=== PATIENT | male | born 1940 | race African-American/Black ===

== ENCOUNTER 2019-02-13 16:13 | Observation (INO) ==
[2019-02-13 17:04] LABS: Basophils % 0.1 % (0.0-0.8); Eosinophils # 0.1 10*3/uL (0.0-0.87); Eosinophils % 0.7 % (0.00-10.9); Hematocrit 43.5 VOL% (42.0-52.0); Hemoglobin 13.8 GM/DL (14.0-18.0); Immature Granulocytes % 0.6 %; Immature Granulocytes Absolute 0.05 #; Lymphocytes # 0.7 10*3/uL (1.4-4.0); Lymphocytes % 8.4 % (21.2-54.2); Mean Corpuscular HGB Conc 31.7 GM/DL (32-36); Mean Corpuscular Volume 96.7 FL (87-102); Mean Platelet Volume 9.9 FL (9.6-12.0); Monocytes % 7.8 % (1.7-12.7); Neutrophils % 82.4 % (38.7-73.9); Platelet Count 129 T/CUMM (130-400); White Blood Count 8.8 T/CUMM (4-12)
[2019-02-13 17:25] LABS: Blood Urea Nitrogen 18 MG/DL (7-18); Calcium 9.1 MG/DL (8.5-10.1); Glucose 83 MG/DL (74-106); Osmolality,Calculated 279.4 MOS/KG (273-304)
[2019-02-13 17:51] LABS: Apearance,Urine CLEAR (Clear); Bilirubin,Urine Negative (Negative); Blood, Urine Negative (Negative); Glucose,Urine (UA) Negative (Negative); Hyaline Casts,Urine 7 /LPF (0-3); Ketones,Urine 20 mg/dL (Negative); Mucus,Urine Occasional /LPF (Occasional); Nitrite,Urine Negative (Negative); Protein,Urine 30 MG/DL; RBC,Urine 2 /HPF (0-4); Squamous Epithelial Cell,Urine Occasional /HPF (0-10); Urine Color Yellow (Yellow); Urine Specific Gravity 1.013 (1.001-1.035); WBC,Urine 2 /HPF (0-6)
[2019-02-13 17:55] LABS: Barbiturates Screen,Urine Negative (Negative); Benzodiazepines Screen,Urine Negative (Negative); Cannabinoid Screen,Urine Negative (Negative); Opiate Screen,Urine Negative (Negative); Phencyclidine Screen,Urine Negative (Negative)
[2019-02-13] MEDS ORDERED: SODIUM CHLORIDE 0.9% 1,000 ML IV STA (19:41)
[2019-02-13] MEDS ORDERED: BISACODYL 5 MG TABLET PO PRN (19:44)
[2019-02-13] MEDS ORDERED: THIAMINE INJ 100 MG, FOLIC ACID INJ 1 MG, MULTIVITAMIN INJ 10 ML in SODIUM CHLORIDE 0.9... IV ONE (19:44)
[2019-02-13] MEDS ORDERED: diphenhydrAMINE CAP 25 MG CAPSULE PO PRN (19:44)
[2019-02-13] MEDS ORDERED: ONDANSETRON 4 MG/2 ML VIAL IV PRN (19:44)
[2019-02-13] MEDS ORDERED: ACETAMINOPHEN 325 MG TABLET PO PRN (19:44)
[2019-02-13 20:15] LABS: Risk Ratio 4.67; Thyroid Stimulating Hormone 1.29 uIU/ml (0.358-3.74); VLDL CHOLESTEROL 13.6 MG/DL
[2019-02-14] MEDS: ASPIRIN 325 MG TABLET PO SCH ×2 (02:42→10:03)
[2019-02-14] MEDS: ENOXAPARIN 100 MG/ML SYRINGE SUBCUT SCH ×4 (02:42→23:55)
[2019-02-14 05:47] LABS: Basophils % 0.3 % (0.0-0.8); Eosinophils # 0.1 10*3/uL (0.0-0.87); Eosinophils % 1.8 % (0.00-10.9); Hematocrit 41.8 VOL% (42.0-52.0); Hemoglobin 13.3 GM/DL (14.0-18.0); Immature Granulocytes % 0.4 %; Immature Granulocytes Absolute 0.03 #; Lymphocytes # 1.2 10*3/uL (1.4-4.0); Mean Corpuscular HGB Conc 31.8 GM/DL (32-36); Mean Corpuscular Volume 97.7 FL (87-102); Mean Platelet Volume 10.1 FL (9.6-12.0); Monocytes % 9.5 % (1.7-12.7); Platelet Count 122 T/CUMM (130-400); Red Blood Count 4.28 MC/CUMM (3.8-5.5); Red Cell Distribution Width 14.2 % (9.3-17.3); White Blood Count 6.7 T/CUMM (4-12)
[2019-02-14 06:33] LABS: Albumin 3.3 G/DL (3.4-5.0); Bilirubin,Total 0.6 MG/DL (0.2-1.0); Calcium 9.2 MG/DL (8.5-10.1); Osmolality,Calculated 281.3 MOS/KG (273-304); Total Protein 6.6 G/DL (6.4-8.3)
[2019-02-14 08:04] LABS: CKMB % 3.6 %
[2019-02-14 08:06] LABS: Troponin I 0.923 NG/ML (0.00-0.045)
[2019-02-14] MEDS ORDERED: MAGNESIUM SULF RIDER 2 GM in PREMIX 1 EACH IV PRN (09:34)
[2019-02-14] MEDS ORDERED: POTASSIUM CHLORIDE RIDER 10 MEQ in PREMIX 1 EACH IV PRN (09:34)
[2019-02-14] MEDS: METOPROLOL TARTRATE 25 MG TABLET PO SCH ×2 (10:03→21:06)
[2019-02-14] MEDS: PANTOPRAZOLE 40 MG TABLET PO SCH (10:03)
[2019-02-14] MEDS: ATORVASTATIN 80 MG TABLET PO SCH (21:06)
[2019-02-15] MEDS: ENOXAPARIN 100 MG/ML SYRINGE SUBCUT SCH ×3 (00:16→12:04)
[2019-02-15 04:31] LABS: Basophils % 0.2 % (0.0-0.8); Eosinophils # 0.3 10*3/uL (0.0-0.87); Eosinophils % 4.6 % (0.00-10.9); Hematocrit 41.4 VOL% (42.0-52.0); Hemoglobin 13.1 GM/DL (14.0-18.0); Immature Granulocytes % 0.4 %; Immature Granulocytes Absolute 0.02 #; Lymphocytes # 1.3 10*3/uL (1.4-4.0); Lymphocytes % 24.3 % (21.2-54.2); Mean Corpuscular HGB Conc 31.6 GM/DL (32-36); Mean Corpuscular Volume 96.7 FL (87-102); Mean Platelet Volume 10.6 FL (9.6-12.0); Monocytes % 9.9 % (1.7-12.7); Neutrophils % 60.6 % (38.7-73.9); Platelet Count 126 T/CUMM (130-400); Red Blood Count 4.28 MC/CUMM (3.8-5.5); Red Cell Distribution Width 14.2 % (9.3-17.3); White Blood Count 5.4 T/CUMM (4-12)
[2019-02-15 05:01] LABS: Calcium 9.4 MG/DL (8.5-10.1); Osmolality,Calculated 274.7 MOS/KG (273-304)
[2019-02-15] MEDS: PANTOPRAZOLE 40 MG TABLET PO SCH (10:09)
[2019-02-15] MEDS: ASPIRIN 325 MG TABLET PO SCH (10:09)
[2019-02-15] MEDS: METOPROLOL TARTRATE 25 MG TABLET PO SCH (10:09)
[2019-02-15] MEDS: SODIUM CHLORIDE 0.45% 1,000 ML IV SCH ×2 (10:10→15:02)
[2019-02-15] MEDS ORDERED: diphenhydrAMINE CAP 25 MG CAPSULE PO ONE (12:00)
[2019-02-15] MEDS ORDERED: DIAZEPAM 5 MG TABLET PO ONE (12:00)
[2019-02-15] MEDS ORDERED: MIDAZOLAM 2 MG/2 ML VIAL ONE (15:09)
[2019-02-15] MEDS ORDERED: HYDROmorphone 2 MG/1 ML VIAL ONE (15:09)
[2019-02-15] MEDS ORDERED: LIDOCAINE 1% 20 ML VIAL ONE (15:09)
[2019-02-15] MEDS ORDERED: TIROFIBAN 5,000 MCG/100 ML PREMIX IV ONE (15:54)
[2019-02-15] MEDS ORDERED: TIROFIBAN 5,000 MCG/100 ML PREMIX IV SCH (15:56)
[2019-02-15] MEDS ORDERED: HYDROmorphone 2 MG/1 ML VIAL IV PRN (16:28)
[2019-02-15] MEDS ORDERED: ZALEPLON 5 MG CAPSULE PO PRN (16:28)
[2019-02-15] MEDS ORDERED: NITROGLYCERIN SL 0.4 MG TABLET SL PRN (16:28)
[2019-02-15 19:31] LABS: Troponin I 0.275 NG/ML (0.00-0.045)
[2019-02-15] MEDS: TICAGRELOR 90 MG TABLET PO SCH (21:11)
[2019-02-15] MEDS: ATORVASTATIN 80 MG TABLET PO SCH (21:11)
[2019-02-16] MEDS: SODIUM CHLORIDE 0.45% 1,000 ML IV SCH ×3 (01:15→16:42)
[2019-02-16 05:39] LABS: Basophils % 0.2 % (0.0-0.8); Eosinophils # 0.2 10*3/uL (0.0-0.87); Eosinophils % 3.4 % (0.00-10.9); Hematocrit 41.1 VOL% (42.0-52.0); Hemoglobin 13.3 GM/DL (14.0-18.0); Immature Granulocytes % 0.9 %; Immature Granulocytes Absolute 0.05 #; Lymphocytes # 0.8 10*3/uL (1.4-4.0); Lymphocytes % 13.7 % (21.2-54.2); Mean Corpuscular HGB Conc 32.4 GM/DL (32-36); Mean Platelet Volume 10.9 FL (9.6-12.0); Monocytes % 10.8 % (1.7-12.7); Platelet Count 122 T/CUMM (130-400); Red Blood Count 4.28 MC/CUMM (3.8-5.5); Red Cell Distribution Width 14.2 % (9.3-17.3); White Blood Count 5.8 T/CUMM (4-12)
[2019-02-16 05:44] LABS: Blood Urea Nitrogen 11 MG/DL (7-18); Calcium 9.5 MG/DL (8.5-10.1); Glucose 77 MG/DL (74-106); Osmolality,Calculated 270.8 MOS/KG (273-304)
[2019-02-16 05:48] LABS: Troponin I 0.316 NG/ML (0.00-0.045)
[2019-02-16] MEDS ORDERED: ASPIRIN EC 81 MG TABLET PO SCH (09:00)
[2019-02-16] MEDS ORDERED: METOPROLOL SUCCINATE XL 25 MG TABLET PO SCH (09:00)
[2019-02-16] MEDS ORDERED: LOSARTAN 25 MG TABLET PO SCH (09:00)
[2019-02-16] MEDS: TICAGRELOR 90 MG TABLET PO SCH (09:18)
[2019-02-16] MEDS: PANTOPRAZOLE 40 MG TABLET PO SCH (09:19)
[2019-02-16 16:45] VITALS: BP 147/80
== END 2019-02-16 17:00 | disposition home or self-care (01) ==
LOC: N.ED 16:13 → N.EDINP 16:13 → N.5E 21:50 → N.TELES 02-15 16:53
PROVIDERS: ADMIT Internal Medicine; ATTEND Internal Medicine
PROC: CLCCHCL (ICD-10-PCS; 2019-02-15 12:45)